=== PATIENT | male | born 1975 | race African-American/Black ===

== ENCOUNTER 2018-08-15 00:37 | Emergency (ER) | payer OTHER ==
[~2018-08-15] VITALS: Ht 182.9 cm; Wt 113.9 kg
[2018-08-15] MEDS ORDERED: PRINIVIL5 MG (00:45)
[2018-08-15] MEDS ORDERED: GLIMEPIRIDE1 MG (00:45)
[2018-08-15] MEDS ORDERED: FORTAMET1000 MG (00:45)
[2018-08-15] MEDS ORDERED: ZESTRIL2.5 MG (00:46)
[2018-08-15] MEDS ORDERED: PEPCID40 MG PO ×2 (06:45→06:46)
[2018-08-15] MEDS ORDERED: ZOFRAN ODT4 MG PO ×2 (06:45→06:46)
== END 2018-08-15 07:25 | disposition home or self-care (01) ==
LOC: ER 00:37
DX: K52.9 Noninfective gastroenteritis and colitis, unspecified (principal)

== ENCOUNTER 2023-02-09 04:00 | Day surgery (SDC) | payer OTHER ==
[~2023-02-09] VITALS: Ht 182.9 cm; Wt 108.0 kg
[~2023-02-09 04:00] MED LIST: FORTAMET1000 MG; GLIMEPIRIDE1 MG; METFORMIN HCL850 M1 PO; PEPCID40 MG PO; PRINIVIL5 MG; ZESTRIL2.5 MG PO; ZOFRAN ODT4 MG PO
[2023-02-09] MEDS ORDERED: PERCOCET 5-3251 EACH PO (17:22)
== END 2023-02-09 19:35 | disposition home or self-care (01) ==
LOC: CIR.AMB 04:00
PROVIDERS: ATTEND Surgery
DX: N52.9 Male erectile dysfunction, unspecified (principal); N48.6 Induration penis plastica; Z20.822 Contact with and (suspected) exposure to COVID-19; E11.9 Type 2 diabetes mellitus without complications; I10 Essential (primary) hypertension
CPT/HCPCS: 54405; 54112; 54360; C1813